=== PATIENT | female | born 1990 | race Asian ===

== ENCOUNTER 2018-07-07 11:30 | Emergency (ER) | payer MEDICAID ==
[~2018-07-07] VITALS: Ht 165.1 cm; Wt 88.0 kg
[~2018-07-07 11:30] MED LIST: IBUP-1222 PO; OXYC-302 PO
[2018-07-07 12:22] LABS: BASOPHILS # (AUTO) 0.03 x10^3/uL (0-0.1); BASOPHILS % (AUTO) 0 % (0-1); EOSINOPHILS # (AUTO) 0.04 x10^3/uL (0-0.4); EOSINOPHILS % (AUTO) 1 % (1-7); LYMPHOCYTES # (AUTO) 2.14 x10^3/uL (1-3.4); LYMPHOCYTES % (AUTO) 33 % (22-44); MD NO; MEAN CORPUSCULAR HGB CONC 31.9 g/dL (32.4-35.8); MEAN CORPUSCULAR VOLUME 68.8 fL (80-100); MEAN PLATELET VOLUME 8.9 fL (7.4-10.4); MONOCYTES # (AUTO) 0.35 x10^3/uL (0.2-0.8); MONOCYTES % (AUTO) 5 % (2-9); NEUTROPHILS # (AUTO) 3.91 x10^3/uL (1.8-6.8); NEUTROPHILS % (AUTO) 61 % (42-75); PLATELET COUNT 343 x10^3/uL (130-400); RED BLOOD COUNT 5.31 x10^6/uL (3.82-5.3); RED CELL DISTRIBUTION WIDTH 18.3 % (9.6-15.2)
[2018-07-07 12:36] LABS: ANION GAP 7 mmol/L (5-15); CALCIUM 8.6 mg/dL (8.5-10.1); CHLORIDE 104 mmol/L (98-107); CREATININE 0.72 mg/dL (0.55-1.02)
[2018-07-07] MEDS ORDERED: morphine SULFATE 10 MG/ML, 1ML IVPush ONE (13:00)
[2018-07-07] MEDS ORDERED: MORPHINE SULFATE 4 MG/ML, 1ML ONE (14:11)
[2018-07-07 14:20] LABS: HCG UR SG 1.045 (1.003-1.030)
[2018-07-07] MEDS ORDERED: METF10007 PO (14:30)
[2018-07-07 14:46] LABS: MICROSCOPIC NOT IND
[2018-07-07 14:54] LABS: CULTURE INDICATED? NO
[2018-07-07 15:46] VITALS: BP 154/87
== END 2018-07-07 16:01 | disposition home or self-care (01) ==
LOC: ED 13:00
DX: R10.31 Right lower quadrant pain (principal)
CPT/HCPCS: 36415; 76830; 80048; 81003; 81025; 82040; 85025; 96374; 99285; J2270

== ENCOUNTER 2018-09-13 22:31 | Emergency (ER) | payer MEDICAID ==
[~2018-09-13] VITALS: Ht 165.1 cm; Wt 85.8 kg
[~2018-09-13 22:31] MED LIST changes: +METF10007 PO; +OMNIPAQUE 350 MG/ML, 100ML BOTTLE ONE
--- NOTE | 2018-09-13 22:34 | NUR ---
NO ANSWER WHEN CALLED
[2018-09-13] MEDS ORDERED: NOVOLOG (22:40)
[2018-09-13] MEDS ORDERED: LEVAMIR (22:40)
[2018-09-13] MEDS ORDERED: ONDANSETRON 2MG/ML, 2ML IVPush ONE (23:30)
[2018-09-13] MEDS ORDERED: SODIUM CHLORIDE FLUSH 10ML SYR IVF ONE (23:30)
[2018-09-13] MEDS ORDERED: HYDROmorphone 2 MG/ML, 1ML IVPush PRN (23:30)
[2018-09-13 23:39] LABS: BASOPHILS # (AUTO) 0.03 x10^3/uL (0-0.1); BASOPHILS % (AUTO) 0 % (0-1); EOSINOPHILS # (AUTO) 0.19 x10^3/uL (0-0.4); EOSINOPHILS % (AUTO) 2 % (1-7); LYMPHOCYTES # (AUTO) 3.22 x10^3/uL (1-3.4); LYMPHOCYTES % (AUTO) 36 % (22-44); MD NO; MEAN CORPUSCULAR HEMOGLOBIN 21.7 pg (27.0-34.8); MEAN CORPUSCULAR HGB CONC 32.2 g/dL (32.4-35.8); MEAN CORPUSCULAR VOLUME 67.5 fL (80-100); MEAN PLATELET VOLUME 8.8 fL (7.4-10.4); MONOCYTES # (AUTO) 0.39 x10^3/uL (0.2-0.8); MONOCYTES % (AUTO) 4 % (2-9); NEUTROPHILS # (AUTO) 5.12 x10^3/uL (1.8-6.8); NEUTROPHILS % (AUTO) 57 % (42-75); PLATELET COUNT 479 x10^3/uL (130-400); RED BLOOD COUNT 5.59 x10^6/uL (3.82-5.3); RED CELL DISTRIBUTION WIDTH 17.3 % (9.6-15.2)
--- NOTE | 2018-09-13 23:45 | NUR ---
IV STARTED, LABS DRAWN AND PT MEDICATED FOR PAIN. PT AWARE AWAITING CT.
[2018-09-13 23:50] LABS: ALANINE AMINOTRANSFERASE 55 U/L (12-78); ANION GAP 8 mmol/L (5-15); CHLORIDE 101 mmol/L (98-107); CREATININE 0.85 mg/dL (0.55-1.02)
[2018-09-13 23:52] LABS: ALKALINE PHOSPHATASE 148 U/L (45-117); BILIRUBIN,TOTAL 0.3 mg/dL (0.2-1.0); TOTAL PROTEIN 9.3 g/dL (6.4-8.2)
[2018-09-14] MEDS ORDERED: INSULIN REGULAR 100 UNITS/ML, 3ML VIAL SQ-INSULIN SCH
[2018-09-14] MEDS ORDERED: ONDANSETRON 2MG/ML, 2ML ONE (00:04)
[2018-09-14] MEDS ORDERED: HYDROmorphone 2 MG/ML, 1ML ONE (00:05)
[2018-09-14] MEDS ORDERED: INSULIN REGULAR 100 UNITS/ML, 3ML VIAL ONE (00:05)
[2018-09-14] MEDS ORDERED: INSULIN REGULAR 100 UNITS/ML, 3ML VIAL SQ-INSULIN ONE (00:30)
[2018-09-14 01:21] LABS: MICROSCOPIC NOT IND
[2018-09-14 01:23] LABS: CULTURE INDICATED? NO
[2018-09-14 02:41] VITALS: BP 132/74
== END 2018-09-14 02:43 | disposition home or self-care (01) ==
LOC: ED 23:37
DX: R10.31 Right lower quadrant pain (principal); R10.32 Left lower quadrant pain; E11.9 Type 2 diabetes mellitus without complications
CPT/HCPCS: 36415; 74177; 80053; 81003; 83605; 85025; 96372; 96374; 96375; 99284; J1170; J2405; Q9967

== ENCOUNTER 2018-09-17 19:16 | Emergency (ER) | payer MEDICAID ==
[~2018-09-17] VITALS: Ht 165.1 cm; Wt 86.6 kg
[~2018-09-17 19:16] MED LIST changes: +LEVAMIR; +NOVOLOG; -OMNIPAQUE 350 MG/ML, 100ML BOTTLE ONE
[2018-09-17 19:37] LABS: BASOPHILS # (AUTO) 0.03 x10^3/uL (0-0.1); BASOPHILS % (AUTO) 0 % (0-1); EOSINOPHILS # (AUTO) 0.13 x10^3/uL (0-0.4); EOSINOPHILS % (AUTO) 2 % (1-7); LYMPHOCYTES # (AUTO) 2.24 x10^3/uL (1-3.4); LYMPHOCYTES % (AUTO) 28 % (22-44); MD NO; MEAN CORPUSCULAR HEMOGLOBIN 21.8 pg (27.0-34.8); MEAN CORPUSCULAR HGB CONC 31.8 g/dL (32.4-35.8); MEAN CORPUSCULAR VOLUME 68.5 fL (80-100); MEAN PLATELET VOLUME 9.1 fL (7.4-10.4); MONOCYTES # (AUTO) 0.42 x10^3/uL (0.2-0.8); MONOCYTES % (AUTO) 5 % (2-9); NEUTROPHILS # (AUTO) 5.12 x10^3/uL (1.8-6.8); NEUTROPHILS % (AUTO) 64 % (42-75); PLATELET COUNT 476 x10^3/uL (130-400); RED BLOOD COUNT 5.39 x10^6/uL (3.82-5.3); RED CELL DISTRIBUTION WIDTH 17.6 % (9.6-15.2)
--- NOTE | 2018-09-17 19:38 | NUR ---
pt presented with c/o VB, b/l lower ABD PAIN, N/V X1 WEEK, pt stated lnmp-08/20/2018, she's not on period at this time, " i'm sometime irregular". monitors applied, siderails up x2, call light within reach, pa at bedside for eval.
[2018-09-17] MEDS ORDERED: IBUP-1222 PO (19:42)
[2018-09-17] MEDS ORDERED: HYDR-3240 PO (19:42)
[2018-09-17 19:50] LABS: ANION GAP 8 mmol/L (5-15); CALCIUM 8.5 mg/dL (8.5-10.1); CHLORIDE 101 mmol/L (98-107); CREATININE 1.21 mg/dL (0.55-1.02)
[2018-09-17] MEDS ORDERED: ONDANSETRON 2MG/ML, 2ML ONE ×2 (20:19→21:24)
[2018-09-17] MEDS ORDERED: INSULIN REGULAR 100 UNITS/ML, 3ML VIAL ONE (20:19)
[2018-09-17] MEDS: SODIUM CHLORIDE 0.9% 1,000ML IVBOLUS ONE (20:22)
[2018-09-17] MEDS: ONDANSETRON 2MG/ML, 2ML IVPush ONE ×2 (20:22→21:25)
[2018-09-17] MEDS: SODIUM CHLORIDE FLUSH 10ML SYR IVF ONE (20:27)
[2018-09-17] MEDS: INSULIN REGULAR 100 UNITS/ML, 3ML VIAL IVPush ONE (20:27)
[2018-09-17 20:33] LABS: ALBUMIN 3.7 g/dL (3.4-5.0)
[2018-09-17 20:35] LABS: BILIRUBIN,TOTAL 0.2 mg/dL (0.2-1.0); TOTAL PROTEIN 8.6 g/dL (6.4-8.2)
--- NOTE | 2018-09-17 20:38 | NUR ---
IV SITE STARTED, IV FLUIDS INFUSING, MEDICATED PER MAR, URINE SAMPLE TAKEN TO LAB, AWAITING RESULTS Addendum: 09/17/18 at 2054 by ALON late entry 2014- additional orders recieved for labs, medications, ultrasound
[2018-09-17 20:42] LABS: MICROSCOPIC NOT IND
--- NOTE | 2018-09-17 20:42 | NUR ---
PT TO ULTRASOUND
[2018-09-17 20:52] LABS: CULTURE INDICATED? NO
[2018-09-17 21:08] LABS: ACETONE, SERUM Negative (Negative)
[2018-09-17 21:19] VITALS: BP 159/94
[2018-09-17] MEDS ORDERED: HYDROmorphone 2 MG/ML, 1ML ONE (21:24)
[2018-09-17] MEDS: HYDROmorphone 2 MG/ML, 1ML IVPush PRN (21:25)
--- NOTE | 2018-09-17 21:27 | NUR ---
pt medicated per nov, erp at bedside for recheck
--- NOTE | 2018-09-17 21:37 | NUR ---
iv site d/c'd, 2x2 drsg applied, homestatias achieved
--- NOTE | 2018-09-17 21:40 | NUR ---
pt states pain is much better, pt stated " is here to to drive me home".
== END 2018-09-17 21:46 | disposition home or self-care (01) ==
LOC: ED 20:45
DX: G89.29 Other chronic pain (principal); R10.32 Left lower quadrant pain; E10.65 Type 1 diabetes mellitus with hyperglycemia; N93.9 Abnormal uterine and vaginal bleeding, unspecified; N83.202 Unspecified ovarian cyst, left side; Z90.89 Acquired absence of other organs
CPT/HCPCS: 36415; 76830; 80048; 81003; 82010; 82040; 82247; 82962; 83690; 84075; 84155; 84450; 84460; 84703; 85025; 96361; 96374; 96375; 96376; 99284; J1170; J2405; J7030

== ENCOUNTER 2018-10-15 11:41 | Emergency (ER) | payer MEDICAID ==
[~2018-10-15] VITALS: Ht 165.1 cm; Wt 86.1 kg
[~2018-10-15 11:41] MED LIST changes: +HYDR-3240 PO
[2018-10-15 11:50] VITALS: BP 127/80
[2018-10-15] MEDS ORDERED: HYDROcodone/APAP 5/325 TABLET ONE (12:09)
[2018-10-15] MEDS ORDERED: HYDROcodone/APAP 5/325 TABLET PO PRN (12:30)
== END 2018-10-15 13:52 | disposition home or self-care (01) ==
LOC: ED 13:42
DX: S16.1XXA Strain of muscle, fascia and tendon at neck level, initial encounter (principal); S13.9XXA Sprain of joints and ligaments of unspecified parts of neck, initial encounter; M54.6 Pain in thoracic spine; R11.2 Nausea with vomiting, unspecified; R51 Headache; E11.9 Type 2 diabetes mellitus without complications; Z90.89 Acquired absence of other organs; Z90.49 Acquired absence of other specified parts of digestive tract; W01.198A Fall on same level from slipping, tripping and stumbling with subsequent striking against other object, initial encounter; Y93.89 Activity, other specified; Y92.009 Unspecified place in unspecified non-institutional (private) residence as the place of occurrence of the external cause; Y99.8 Other external cause status
CPT/HCPCS: 70450; 72072; 72125; 99284

== ENCOUNTER 2018-11-08 12:02 | Emergency (ER) | payer MEDICAID ==
[~2018-11-08] VITALS: Ht 165.1 cm; Wt 86.3 kg
[2018-11-08] MEDS ORDERED: SODIUM CHLORIDE 0.9% 1,000ML IVBOLUS ONE (15:30)
[2018-11-08] MEDS ORDERED: SODIUM CHLORIDE FLUSH 10ML SYR IVF ONE (15:30)
[2018-11-08] MEDS ORDERED: KETOROLAC 30 MG/1 ML IVPush ONE (15:30)
[2018-11-08 15:33] LABS: BASOPHILS # (AUTO) 0.03 x10^3/uL (0-0.1); BASOPHILS % (AUTO) 1 % (0-1); EOSINOPHILS # (AUTO) 0.09 x10^3/uL (0-0.4); EOSINOPHILS % (AUTO) 2 % (1-7); LYMPHOCYTES # (AUTO) 1.24 x10^3/uL (1-3.4); LYMPHOCYTES % (AUTO) 22 % (22-44); MD NO; MEAN CORPUSCULAR HEMOGLOBIN 20.9 pg (27.0-34.8); MEAN CORPUSCULAR HGB CONC 31.7 g/dL (32.4-35.8); MEAN CORPUSCULAR VOLUME 66.1 fL (80-100); MEAN PLATELET VOLUME 8.3 fL (7.4-10.4); MONOCYTES # (AUTO) 0.33 x10^3/uL (0.2-0.8); MONOCYTES % (AUTO) 6 % (2-9); NEUTROPHILS % (AUTO) 70 % (42-75); PLATELET COUNT 461 x10^3/uL (130-400); RED BLOOD COUNT 5.39 x10^6/uL (3.82-5.3); RED CELL DISTRIBUTION WIDTH 18.7 % (9.6-15.2)
[2018-11-08 15:46] LABS: ALBUMIN 3.9 g/dL (3.4-5.0); ANION GAP 10 mmol/L (5-15); CALCIUM 8.5 mg/dL (8.5-10.1); CHLORIDE 105 mmol/L (98-107); CREATININE 0.81 mg/dL (0.55-1.02)
[2018-11-08 15:53] LABS: TROPONIN I < 0.015 ng/mL (0.000-0.045)
[2018-11-08] MEDS ORDERED: KETOROLAC 30 MG/1 ML ONE ×2 (16:14→16:15)
[2018-11-08] MEDS ORDERED: MORPHINE SULFATE 4 MG/ML, 1ML ONE (17:25)
--- NOTE | 2018-11-08 17:28 | NUR ---
REPORT OF PT FROM VANNA JOSEPH AND ASSUMING CARE OF PT. PT MEDICATED PER MAR FOR PAIN.
[2018-11-08] MEDS ORDERED: MORPHINE SULFATE 4 MG/ML, 1ML IVPush PRN (17:30)
[2018-11-08] MEDS ORDERED: OMNIPAQUE 350 MG/ML, 100ML BOTTLE ONE (17:41)
--- NOTE | 2018-11-08 19:18 | NUR ---
PT D/C WITH D/C SUMMARY AND SCRIPTS. ALL QUESTIONS ANSWERED. PT AMBULATED TO REGISTRATION DESK WITH STEADY GAIT. IV D/C WITH TIP INTACT. PT DENIES ANY OTHER NEEDS PERTAINING TO THIS VISIT. VSS.
[2018-11-08 19:19] VITALS: BP 113/70
== END 2018-11-08 19:21 | disposition home or self-care (01) ==
LOC: ED 15:31
DX: R07.2 Precordial pain (principal); E11.9 Type 2 diabetes mellitus without complications
CPT/HCPCS: 36415; 71046; 71275; 80048; 82040; 84484; 85025; 85379; 93005; 96361; 96374; 96375; 99284; J1885; J7030; Q9967